=== PATIENT | female | born 1945 | race Caucasian/White ===

== ENCOUNTER 2017-02-02 16:31 | Inpatient (IN) | payer MEDICARE, MEDICAID ==
[~2017-02-02] VITALS: Ht 170.2 cm; Wt 134.7 kg
[2017-02-02 14:55] VITALS: BP 155/77
[~2017-02-02 16:31] MED LIST: BUPR300T53 PO; DOCU250C91 PO; LAMO200T PO; LEVO75TA4 PO; LISI5TAB PO; METF850T2 PO; NYST1POW TP; PNEUMOCOCCAL VACCINE POLYVALENT 0.5 ML VIAL [PPSV23] IM ONE; QUET50TA PO; RISP1 PO; SENN-161 PO; THERAGRAN M1 TA1 PO; XALA2.5OS OU
[2017-02-02] MEDS ORDERED: FURO-152 PO (16:43)
[2017-02-02] MEDS ORDERED: SITA50 PO (16:43)
[2017-02-02 17:13] LABS: BASOPHILS % (AUTO) 0.3 % (0.0-2.0); EOSINOPHILS % (AUTO) 0 % (1.0-6.0); HEMATOCRIT 32.7 % (36-46); HEMOGLOBIN 10.9 g/dL (12.0-16.0); LYMPHOCYTES # (AUTO) 0.6 K/uL (1.0-4.8); LYMPHOCYTES % (AUTO) 15.6 % (22.0-44.0); MEAN CORPUSCULAR HEMOGLOBIN 28.7 pg (26.0-34.0); MEAN CORPUSCULAR HGB CONC 33.5 G/dL (31.0-37.0); MEAN CORPUSCULAR VOLUME 86 fL (80-100); MONOCYTES # (AUTO) 0.3 K/uL (0.1-1.0); NEUTROPHILS % (AUTO) 76.1 % (40.0-70.0); PLATELET COUNT (AUTO) 117 K/uL (150-450); RED BLOOD CELL COUNT(AUTO) 3.81 MIL/uL (4.00-5.20); RED CELL DISTRIBUTION WIDTH 14.5 % (11.5-14.5); WHITE BLOOD COUNT (AUTO) 3.9 K/uL (4.5-11.0)
[2017-02-02 17:44] LABS: ANION GAP 5 mmol/L (8-16); CALCIUM, TOTAL 10.1 mg/dL (8.8-10.5); CARBON DIOXIDE 34 mmol/L (22-29); CHLORIDE 99 mmol/L (98-107); CREATININE 1.77 mg/dL (0.60-1.30); GLOMERULAR FILTR. RATE CALC 28 mL/min (>60); POTASSIUM 3.7 mmol/L (3.5-5.1); SODIUM SERUM 138 mmol/L (136-145); UREA NITROGEN, BLOOD 34 mg/dL (7-18)
[2017-02-02 17:50] LABS: ALANINE AMINOTRANSFERASE 23 U/L (12-78); ALBUMIN 3.1 g/dL (3.4-5.0); ASPARTATE AMINOTRANSFERASE 14 U/L (15-37); BILIRUBIN,TOTAL 0.3 mg/dL (0.1-1.0); TOTAL PROTEIN, SERUM 6.5 g/dL (6.4-8.2)
[2017-02-02 19:17] LABS: GLUCOSE,POINT OF CARE 309 MG/DL (70-110)
[2017-02-02] MEDS ORDERED: INSULIN REGULAR, HUMAN 100 UNITS/ML IVP ONE (19:30)
[2017-02-02] MEDS ORDERED: SODIUM CHLORIDE 0.9% 250 ML IV ONE (19:30)
[2017-02-02] MEDS ORDERED: INSULIN REGULAR, HUMAN 100 UNITS/ML SQ ONE ×2 (19:45)
[2017-02-02 19:50] LABS: APPEARANCE,URINE CLEAR (CLEAR); GLUCOSE, URINE (UA) 500 mg/dL (NEGATIVE); KETONES,URINE NEGATIVE (NEGATIVE); LEUKOCYTE ESTERASE ,URINE NEGATIVE (NEGATIVE); OCCULT BLOOD,URINE NEGATIVE (NEGATIVE); PROTEIN,URINE NEGATIVE (NEGATIVE)
[2017-02-02 19:51] LABS: ADD UA MICROSCOPIC YES; RBC,URINE 0-2 /HPF (0-2); SQUAMOUS EPITHELIAL CELL,UR Few /LPF (None Seen); WBC,URINE 0-2 /HPF (0-5)
[2017-02-02] MEDS ORDERED: SENNA 187 MG TABLET PO PRN (22:15)
[2017-02-02] MEDS ORDERED: DEXTROSE 50%-WATER 25 GM/50 ML SYRINGE IVP PRN (22:30)
[2017-02-02 22:41] VITALS: BP 119/59
[2017-02-02 22:58] VITALS: BP 119/59
[2017-02-03 05:57] LABS: GLUCOSE,POINT OF CARE 265 MG/DL (70-110)
[2017-02-03 06:00] VITALS: BP 133/73
[2017-02-03] MEDS: MetFORMIN HCL 500 MG TABLET PO SCH (06:32)
[2017-02-03] MEDS ORDERED: LEVOTHYROXINE SODIUM 50 MCG TABLET PO SCH (07:00)
[2017-02-03 07:05] LABS: BASOPHILS % (AUTO) 0.1 % (0.0-2.0); EOSINOPHILS % (AUTO) 0 % (1.0-6.0); HEMATOCRIT 30.3 % (36-46); HEMOGLOBIN 10.4 g/dL (12.0-16.0); LYMPHOCYTES # (AUTO) 0.6 K/uL (1.0-4.8); LYMPHOCYTES % (AUTO) 14.9 % (22.0-44.0); MEAN CORPUSCULAR HGB CONC 34.2 G/dL (31.0-37.0); MEAN CORPUSCULAR VOLUME 85 fL (80-100); MONOCYTES # (AUTO) 0.3 K/uL (0.1-1.0); MONOCYTES % (AUTO) 8.7 % (2.0-9.0); NEUTROPHILS % (AUTO) 76.3 % (40.0-70.0); PLATELET COUNT (AUTO) 121 K/uL (150-450); RED BLOOD CELL COUNT(AUTO) 3.57 MIL/uL (4.00-5.20); RED CELL DISTRIBUTION WIDTH 14.3 % (11.5-14.5)
[2017-02-03] MEDS: INSULIN ASPART 100 UNITS/ML SQ PRN ×4 (07:15→20:45)
[2017-02-03 07:37] LABS: ALBUMIN 2.9 g/dL (3.4-5.0); BILIRUBIN,TOTAL 0.3 mg/dL (0.1-1.0); CALCIUM, TOTAL 9.7 mg/dL (8.8-10.5); CREATININE 1.65 mg/dL (0.60-1.30); POTASSIUM 3.9 mmol/L (3.5-5.1); THYROID STIMULATING HORMONE 5.7 uIU/mL (0.36-3.74); TOTAL PROTEIN, SERUM 6.1 g/dL (6.4-8.2)
[2017-02-03 08:00] VITALS: BP 161/92
[2017-02-03] MEDS: LISINOPRIL 5 MG TABLET PO SCH (09:58)
[2017-02-03] MEDS: DOCUSATE SODIUM 250 MG CAPSULE PO SCH ×2 (09:58→16:38)
[2017-02-03] MEDS: SitaGLIPtin PHOSPHATE 50 MG TABLET PO SCH (09:58)
[2017-02-03] MEDS: FUROSEMIDE 20 MG TABLET PO SCH (09:58)
[2017-02-03] MEDS: MULTIVITAMINS WITH MINERALS, THERAPEUTIC TABLET PO SCH (09:59)
[2017-02-03] MEDS: NYSTATIN 15 GM POWDER BOTTLE TP SCH ×2 (09:59→20:14)
[2017-02-03 11:12] LABS: GLUCOSE COMMENT 1 Received Meds; GLUCOSE,POINT OF CARE 298 MG/DL (70-110)
[2017-02-03 16:32] LABS: GLUCOSE,POINT OF CARE 275 MG/DL (70-110)
[2017-02-03] MEDS: LORazepam 1 MG TABLET PO PRN (16:40)
[2017-02-03] MEDS ORDERED: LEVO50 PO (17:03)
[2017-02-03] MEDS ORDERED: RISP3 PO (17:03)
[2017-02-03] MEDS ORDERED: METF500T4 PO (17:03)
[2017-02-03 17:08] VITALS: BP 152/88
[2017-02-03] MEDS: QUEtiapine FUMARATE 100 MG TABLET PO SCH (17:30)
[2017-02-03] MEDS: DIVALPROEX SODIUM 500 MG DR TABLET PO SCH (17:30)
[2017-02-03] MEDS: QUEtiapine FUMARATE 300 MG TABLET PO SCH (20:14)
[2017-02-03] MEDS: LATANOPROST 0.005% 2.5 ML OPHTHALMIC SOLUTION OU SCH (20:14)
[2017-02-03 21:07] LABS: GLUCOSE,POINT OF CARE 279 MG/DL (70-110)
[2017-02-04 00:23] VITALS: BP 129/64
[2017-02-04 05:39] LABS: GLUCOSE COMMENT 1 Received Meds; GLUCOSE,POINT OF CARE 333 MG/DL (70-110)
[2017-02-04] MEDS: LEVOTHYROXINE SODIUM 75 MCG TABLET PO SCH (07:00)
[2017-02-04] MEDS: INSULIN ASPART 100 UNITS/ML SQ PRN ×3 (07:19→17:46)
[2017-02-04] MEDS: MetFORMIN HCL 500 MG TABLET PO SCH ×2 (07:21→08:03)
[2017-02-04 07:26] LABS: HEMOGLOBIN A1C 8.7 % (4.5-6.2)
[2017-02-04 07:28] LABS: CREATINE KINASE, TOTAL 59 U/L (26-192)
[2017-02-04] MEDS: FUROSEMIDE 20 MG TABLET PO SCH (08:03)
[2017-02-04] MEDS: SitaGLIPtin PHOSPHATE 50 MG TABLET PO SCH (08:04)
[2017-02-04] MEDS: QUEtiapine FUMARATE 100 MG TABLET PO SCH ×3 (08:04→17:50)
[2017-02-04] MEDS: DIVALPROEX SODIUM 500 MG DR TABLET PO SCH ×2 (08:04→17:50)
[2017-02-04] MEDS: LamoTRIgine 100 MG TABLET PO SCH (08:04)
[2017-02-04] MEDS: LISINOPRIL 5 MG TABLET PO SCH (08:04)
[2017-02-04] MEDS: DOCUSATE SODIUM 250 MG CAPSULE PO SCH ×2 (08:04→17:50)
[2017-02-04] MEDS: MULTIVITAMINS WITH MINERALS, THERAPEUTIC TABLET PO SCH (08:04)
[2017-02-04] MEDS: NYSTATIN 15 GM POWDER BOTTLE TP SCH ×2 (08:28→21:12)
[2017-02-04 09:23] VITALS: BP 120/63
[2017-02-04] MEDS: LORazepam 1 MG TABLET PO PRN ×2 (09:33→12:03)
[2017-02-04 11:43] LABS: GLUCOSE COMMENT 1 Received Meds; GLUCOSE,POINT OF CARE 341 MG/DL (70-110)
[2017-02-04 18:09] VITALS: BP 109/61
[2017-02-04 20:33] LABS: GLUCOSE COMMENT 1 Received Meds; GLUCOSE,POINT OF CARE 197 MG/DL (70-110)
[2017-02-04] MEDS: QUEtiapine FUMARATE 300 MG TABLET PO SCH (21:12)
[2017-02-04] MEDS: LATANOPROST 0.005% 2.5 ML OPHTHALMIC SOLUTION OU SCH (21:13)
[2017-02-05 00:05] VITALS: BP 119/70
[2017-02-05] MEDS: ZOLPIDEM TARTRATE 10 MG TABLET PO PRN (00:12)
[2017-02-05] MEDS: LORazepam 1 MG TABLET PO PRN ×2 (02:11→09:03)
[2017-02-05] MEDS: INSULIN ASPART 100 UNITS/ML SQ PRN (06:32)
[2017-02-05] MEDS: LEVOTHYROXINE SODIUM 75 MCG TABLET PO SCH (06:33)
[2017-02-05 08:09] VITALS: BP 123/70
[2017-02-05] MEDS: DOCUSATE SODIUM 250 MG CAPSULE PO SCH ×2 (09:02→17:26)
[2017-02-05] MEDS: QUEtiapine FUMARATE 100 MG TABLET PO SCH ×3 (09:02→17:26)
[2017-02-05] MEDS: MULTIVITAMINS WITH MINERALS, THERAPEUTIC TABLET PO SCH (09:02)
[2017-02-05] MEDS: DIVALPROEX SODIUM 500 MG DR TABLET PO SCH ×2 (09:02→17:26)
[2017-02-05] MEDS: SitaGLIPtin PHOSPHATE 50 MG TABLET PO SCH (09:02)
[2017-02-05] MEDS: LamoTRIgine 100 MG TABLET PO SCH (09:03)
[2017-02-05] MEDS: LISINOPRIL 5 MG TABLET PO SCH (09:03)
[2017-02-05] MEDS: NYSTATIN 15 GM POWDER BOTTLE TP SCH ×2 (09:03→21:00)
[2017-02-05] MEDS: FUROSEMIDE 20 MG TABLET PO SCH (09:03)
[2017-02-05 16:05] VITALS: BP 120/73
[2017-02-05] MEDS: LATANOPROST 0.005% 2.5 ML OPHTHALMIC SOLUTION OU SCH (22:18)
[2017-02-05] MEDS: QUEtiapine FUMARATE 300 MG TABLET PO SCH (22:18)
[2017-02-06 02:16] VITALS: BP 143/67
[2017-02-06] MEDS: LEVOTHYROXINE SODIUM 75 MCG TABLET PO SCH ×2 (07:00→07:29)
[2017-02-06] MEDS: INSULIN ASPART 100 UNITS/ML SQ PRN ×3 (07:06→11:03)
[2017-02-06 07:14] LABS: CALCIUM, TOTAL 10.2 mg/dL (8.8-10.5); CHOL/HDL RATIO 3.7 (3.9-5.7); CREATININE 1.54 mg/dL (0.60-1.30); PHOSPHORUS 3.9 mg/dL (2.5-4.9); POTASSIUM 4.1 mmol/L (3.5-5.1)
[2017-02-06] MEDS: SitaGLIPtin PHOSPHATE 50 MG TABLET PO SCH (08:43)
[2017-02-06] MEDS: MULTIVITAMINS WITH MINERALS, THERAPEUTIC TABLET PO SCH (08:44)
[2017-02-06] MEDS: LISINOPRIL 5 MG TABLET PO SCH (08:44)
[2017-02-06] MEDS: FUROSEMIDE 20 MG TABLET PO SCH (08:44)
[2017-02-06] MEDS: LamoTRIgine 100 MG TABLET PO SCH (08:44)
[2017-02-06] MEDS: DOCUSATE SODIUM 250 MG CAPSULE PO SCH ×2 (08:44→17:26)
[2017-02-06] MEDS: QUEtiapine FUMARATE 100 MG TABLET PO SCH ×3 (08:44→17:26)
[2017-02-06] MEDS: DIVALPROEX SODIUM 500 MG DR TABLET PO SCH ×2 (08:46→17:26)
[2017-02-06 09:40] VITALS: BP 123/73
[2017-02-06 10:00] VITALS: BP 127/71
[2017-02-06] MEDS: NYSTATIN 15 GM POWDER BOTTLE TP SCH ×2 (10:04→21:00)
[2017-02-06] MEDS: GlipiZIDE 5 MG TABLET PO SCH (12:13)
[2017-02-06 20:54] VITALS: BP 100/58
[2017-02-06] MEDS: LATANOPROST 0.005% 2.5 ML OPHTHALMIC SOLUTION OU SCH (21:46)
[2017-02-06] MEDS: QUEtiapine FUMARATE 300 MG TABLET PO SCH (21:46)
[2017-02-07 03:17] VITALS: BP 120/75
[2017-02-07] MEDS: GlipiZIDE 5 MG TABLET PO SCH (07:10)
[2017-02-07] MEDS: LEVOTHYROXINE SODIUM 75 MCG TABLET PO SCH (07:10)
[2017-02-07] MEDS: INSULIN ASPART 100 UNITS/ML SQ PRN ×3 (07:12→17:31)
[2017-02-07 08:21] VITALS: BP 102/56
[2017-02-07] MEDS: LamoTRIgine 100 MG TABLET PO SCH (09:16)
[2017-02-07] MEDS: DIVALPROEX SODIUM 500 MG DR TABLET PO SCH ×2 (09:16→16:42)
[2017-02-07] MEDS: SitaGLIPtin PHOSPHATE 50 MG TABLET PO SCH (09:16)
[2017-02-07] MEDS: FUROSEMIDE 20 MG TABLET PO SCH (09:16)
[2017-02-07] MEDS: DOCUSATE SODIUM 250 MG CAPSULE PO SCH ×2 (09:16→16:42)
[2017-02-07] MEDS: MULTIVITAMINS WITH MINERALS, THERAPEUTIC TABLET PO SCH (09:17)
[2017-02-07] MEDS: NYSTATIN 15 GM POWDER BOTTLE TP SCH ×2 (09:17→21:13)
[2017-02-07] MEDS: LISINOPRIL 5 MG TABLET PO SCH (09:17)
[2017-02-07] MEDS: QUEtiapine FUMARATE 100 MG TABLET PO SCH ×3 (09:17→16:42)
[2017-02-07 09:36] LABS: GLUCOSE COMMENT 1 Received Meds; GLUCOSE,POINT OF CARE 240 MG/DL (70-110)
[2017-02-07 09:51] LABS: GLUCOSE COMMENT 1 Received Meds; GLUCOSE,POINT OF CARE 384 MG/DL (70-110)
[2017-02-07 10:03] LABS: GLUCOSE,POINT OF CARE 305 MG/DL (70-110)
[2017-02-07 10:22] LABS: GLUCOSE,POINT OF CARE 313 MG/DL (70-110)
[2017-02-07 11:22] LABS: GLUCOSE,POINT OF CARE 276 MG/DL (70-110)
[2017-02-07 16:43] VITALS: BP 140/65
[2017-02-07 17:48] LABS: GLUCOSE,POINT OF CARE 216 MG/DL (70-110)
[2017-02-07 20:56] LABS: GLUCOSE COMMENT 1 Received Meds; GLUCOSE COMMENT 2 FASTING; GLUCOSE,POINT OF CARE 259 MG/DL (70-110)
[2017-02-07] MEDS: QUEtiapine FUMARATE 300 MG TABLET PO SCH (21:12)
[2017-02-07] MEDS: LATANOPROST 0.005% 2.5 ML OPHTHALMIC SOLUTION OU SCH (21:12)
[2017-02-07 21:17] LABS: GLUCOSE,POINT OF CARE 236 MG/DL (70-110)
[2017-02-07] MEDS: LORazepam 1 MG TABLET PO PRN (22:53)
[2017-02-07] MEDS: ZOLPIDEM TARTRATE 10 MG TABLET PO PRN (22:53)
[2017-02-08 05:48] LABS: GLUCOSE,POINT OF CARE 221 MG/DL (70-110)
[2017-02-08] MEDS: LEVOTHYROXINE SODIUM 75 MCG TABLET PO SCH (06:38)
[2017-02-08] MEDS: GlipiZIDE 5 MG TABLET PO SCH (06:38)
[2017-02-08] MEDS: INSULIN ASPART 100 UNITS/ML SQ PRN ×4 (07:06→21:02)
[2017-02-08 08:19] VITALS: BP 140/88
[2017-02-08] MEDS: FUROSEMIDE 20 MG TABLET PO SCH (09:36)
[2017-02-08] MEDS: MULTIVITAMINS WITH MINERALS, THERAPEUTIC TABLET PO SCH (09:36)
[2017-02-08] MEDS: DIVALPROEX SODIUM 500 MG DR TABLET PO SCH ×2 (09:36→15:49)
[2017-02-08] MEDS: LamoTRIgine 100 MG TABLET PO SCH (09:37)
[2017-02-08] MEDS: DOCUSATE SODIUM 250 MG CAPSULE PO SCH ×2 (09:37→15:49)
[2017-02-08] MEDS: SitaGLIPtin PHOSPHATE 50 MG TABLET PO SCH (09:37)
[2017-02-08] MEDS: LISINOPRIL 5 MG TABLET PO SCH (09:37)
[2017-02-08] MEDS: QUEtiapine FUMARATE 100 MG TABLET PO SCH ×3 (09:37→15:49)
[2017-02-08] MEDS: NYSTATIN 15 GM POWDER BOTTLE TP SCH ×2 (09:37→21:05)
[2017-02-08] MEDS: ACETAMINOPHEN 325 MG TABLET PO PRN (10:10)
[2017-02-08 11:07] LABS: GLUCOSE COMMENT 1 Received Meds; GLUCOSE,POINT OF CARE 368 MG/DL (70-110)
[2017-02-08] MEDS: LORazepam 1 MG TABLET PO PRN (15:03)
[2017-02-08 16:07] LABS: GLUCOSE COMMENT 1 Received Meds; GLUCOSE,POINT OF CARE 192 MG/DL (70-110)
[2017-02-08 16:08] VITALS: BP 129/69
[2017-02-08] MEDS: QUEtiapine FUMARATE 300 MG TABLET PO SCH (20:52)
[2017-02-08] MEDS: LATANOPROST 0.005% 2.5 ML OPHTHALMIC SOLUTION OU SCH (20:52)
[2017-02-08 21:02] LABS: GLUCOSE COMMENT 1 Received Meds; GLUCOSE,POINT OF CARE 211 MG/DL (70-110)
[2017-02-09 05:48] LABS: GLUCOSE COMMENT 1 Received Meds; GLUCOSE,POINT OF CARE 250 MG/DL (70-110)
[2017-02-09] MEDS: INSULIN ASPART 100 UNITS/ML SQ PRN ×2 (07:06→11:56)
[2017-02-09] MEDS: LEVOTHYROXINE SODIUM 75 MCG TABLET PO SCH (07:09)
[2017-02-09] MEDS: GlipiZIDE 5 MG TABLET PO SCH (07:09)
[2017-02-09 08:15] VITALS: BP 135/87
[2017-02-09] MEDS: DIVALPROEX SODIUM 500 MG DR TABLET PO SCH ×2 (08:20→18:11)
[2017-02-09] MEDS: SitaGLIPtin PHOSPHATE 50 MG TABLET PO SCH (08:20)
[2017-02-09] MEDS: MULTIVITAMINS WITH MINERALS, THERAPEUTIC TABLET PO SCH (08:20)
[2017-02-09] MEDS: DOCUSATE SODIUM 250 MG CAPSULE PO SCH ×2 (08:20→18:11)
[2017-02-09] MEDS: LISINOPRIL 5 MG TABLET PO SCH (08:21)
[2017-02-09] MEDS: NYSTATIN 15 GM POWDER BOTTLE TP SCH ×2 (08:21→21:19)
[2017-02-09] MEDS: QUEtiapine FUMARATE 100 MG TABLET PO SCH ×3 (08:21→18:11)
[2017-02-09] MEDS: FUROSEMIDE 20 MG TABLET PO SCH (08:22)
[2017-02-09] MEDS: LamoTRIgine 100 MG TABLET PO SCH (08:22)
[2017-02-09 11:52] LABS: GLUCOSE,POINT OF CARE 210 MG/DL (70-110)
[2017-02-09] MEDS: ACETAMINOPHEN 325 MG TABLET PO PRN (12:46)
[2017-02-09 16:41] LABS: GLUCOSE,POINT OF CARE 133 MG/DL (70-110)
[2017-02-09 18:23] VITALS: BP 123/72
[2017-02-09 19:17] LABS: GLUCOSE COMMENT 1 Post Meal; GLUCOSE,POINT OF CARE 186 MG/DL (70-110)
[2017-02-09 20:15] VITALS: BP 95/50
[2017-02-09] MEDS: QUEtiapine FUMARATE 300 MG TABLET PO SCH (21:00)
[2017-02-09] MEDS: LATANOPROST 0.005% 2.5 ML OPHTHALMIC SOLUTION OU SCH (21:19)
[2017-02-10 05:58] LABS: GLUCOSE,POINT OF CARE 205 MG/DL (70-110)
[2017-02-10] MEDS: GlipiZIDE 5 MG TABLET PO SCH (06:49)
[2017-02-10] MEDS: LEVOTHYROXINE SODIUM 75 MCG TABLET PO SCH (06:49)
[2017-02-10] MEDS: INSULIN ASPART 100 UNITS/ML SQ PRN ×2 (06:58→21:12)
[2017-02-10 08:02] VITALS: BP 132/79
[2017-02-10] MEDS: DOCUSATE SODIUM 250 MG CAPSULE PO SCH ×2 (09:00→17:00)
[2017-02-10] MEDS: MULTIVITAMINS WITH MINERALS, THERAPEUTIC TABLET PO SCH (09:00)
[2017-02-10] MEDS: QUEtiapine FUMARATE 100 MG TABLET PO SCH ×3 (09:00→17:00)
[2017-02-10] MEDS: SitaGLIPtin PHOSPHATE 50 MG TABLET PO SCH (09:01)
[2017-02-10] MEDS: DIVALPROEX SODIUM 500 MG DR TABLET PO SCH ×2 (09:01→17:00)
[2017-02-10] MEDS: LamoTRIgine 100 MG TABLET PO SCH (09:01)
[2017-02-10] MEDS: FUROSEMIDE 20 MG TABLET PO SCH (09:01)
[2017-02-10] MEDS: LORazepam 1 MG TABLET PO PRN ×2 (09:01→22:21)
[2017-02-10] MEDS: NYSTATIN 15 GM POWDER BOTTLE TP SCH ×2 (09:01→20:26)
[2017-02-10] MEDS: LISINOPRIL 5 MG TABLET PO SCH (09:01)
[2017-02-10 10:58] VITALS: BP 148/89
[2017-02-10] MEDS: ACETAMINOPHEN 325 MG TABLET PO PRN ×2 (10:58→20:36)
[2017-02-10 11:17] LABS: GLUCOSE COMMENT 1 Received Meds; GLUCOSE,POINT OF CARE 151 MG/DL (70-110)
[2017-02-10 16:12] VITALS: BP 131/78
[2017-02-10 16:22] LABS: GLUCOSE,POINT OF CARE 129 MG/DL (70-110)
[2017-02-10 16:34] VITALS: BP 131/78
[2017-02-10] MEDS: QUEtiapine FUMARATE 300 MG TABLET PO SCH (20:26)
[2017-02-10] MEDS: LATANOPROST 0.005% 2.5 ML OPHTHALMIC SOLUTION OU SCH (20:26)
[2017-02-10 20:37] VITALS: BP 129/74
[2017-02-10 20:37] LABS: GLUCOSE COMMENT 1 Received Meds; GLUCOSE,POINT OF CARE 216 MG/DL (70-110)
[2017-02-11 05:35] VITALS: BP 111/74
[2017-02-11 05:47] LABS: GLUCOSE,POINT OF CARE 204 MG/DL (70-110)
[2017-02-11] MEDS: INSULIN ASPART 100 UNITS/ML SQ PRN ×4 (06:48→21:59)
[2017-02-11] MEDS: GlipiZIDE 5 MG TABLET PO SCH (06:51)
[2017-02-11] MEDS: LEVOTHYROXINE SODIUM 75 MCG TABLET PO SCH (06:51)
[2017-02-11 07:02] LABS: CALCIUM, TOTAL 10.6 mg/dL (8.8-10.5); CREATININE 2.21 mg/dL (0.60-1.30); MAGNESIUM 2.7 mg/dL (1.80-2.40); PHOSPHORUS 4.2 mg/dL (2.5-4.9); POTASSIUM 4.5 mmol/L (3.5-5.1)
[2017-02-11 07:42] LABS: BASOPHILS % (AUTO) 0.2 % (0.0-2.0); EOSINOPHILS % (AUTO) 0.1 % (1.0-6.0); HEMOGLOBIN 11.5 g/dL (12.0-16.0); LYMPHOCYTES # (AUTO) 0.7 K/uL (1.0-4.8); LYMPHOCYTES % (AUTO) 24.4 % (22.0-44.0); MEAN CORPUSCULAR HEMOGLOBIN 29.1 pg (26.0-34.0); MEAN CORPUSCULAR HGB CONC 33.9 G/dL (31.0-37.0); MEAN CORPUSCULAR VOLUME 86 fL (80-100); MONOCYTES # (AUTO) 0.4 K/uL (0.1-1.0); MONOCYTES % (AUTO) 12.9 % (2.0-9.0); NEUTROPHILS # (AUTO) 1.8 K/uL (1.8-7.7); NEUTROPHILS % (AUTO) 62.4 % (40.0-70.0); PLATELET COUNT (AUTO) 127 K/uL (150-450); RED BLOOD CELL COUNT(AUTO) 3.96 MIL/uL (4.00-5.20); RED CELL DISTRIBUTION WIDTH 14.5 % (11.5-14.5); WHITE BLOOD COUNT (AUTO) 2.9 K/uL (4.5-11.0)
[2017-02-11] MEDS: MULTIVITAMINS WITH MINERALS, THERAPEUTIC TABLET PO SCH (09:02)
[2017-02-11] MEDS: PIOGLITAZONE HCL 15 MG TABLET PO SCH (09:02)
[2017-02-11] MEDS: LamoTRIgine 100 MG TABLET PO SCH (09:02)
[2017-02-11] MEDS: DIVALPROEX SODIUM 500 MG DR TABLET PO SCH ×2 (09:02→17:27)
[2017-02-11] MEDS: QUEtiapine FUMARATE 100 MG TABLET PO SCH ×3 (09:02→17:27)
[2017-02-11] MEDS: DOCUSATE SODIUM 250 MG CAPSULE PO SCH ×2 (09:02→17:00)
[2017-02-11] MEDS: FUROSEMIDE 20 MG TABLET PO SCH (09:02)
[2017-02-11] MEDS: LISINOPRIL 5 MG TABLET PO SCH (09:03)
[2017-02-11] MEDS: NYSTATIN 15 GM POWDER BOTTLE TP SCH ×2 (09:03→20:18)
[2017-02-11] MEDS: SitaGLIPtin PHOSPHATE 50 MG TABLET PO SCH (09:03)
[2017-02-11 09:54] VITALS: BP 139/87
[2017-02-11 11:32] LABS: GLUCOSE,POINT OF CARE 176 MG/DL (70-110)
[2017-02-11 16:26] VITALS: BP 132/81
[2017-02-11 17:27] LABS: GLUCOSE COMMENT 1 Received Meds; GLUCOSE,POINT OF CARE 171 MG/DL (70-110)
[2017-02-11] MEDS: LORazepam 1 MG TABLET PO PRN ×2 (17:27→21:47)
[2017-02-11] MEDS: LATANOPROST 0.005% 2.5 ML OPHTHALMIC SOLUTION OU SCH (20:19)
[2017-02-11] MEDS: QUEtiapine FUMARATE 300 MG TABLET PO SCH (20:19)
[2017-02-11 20:27] LABS: GLUCOSE COMMENT 1 Received Meds; GLUCOSE,POINT OF CARE 170 MG/DL (70-110)
[2017-02-12] MEDS: ZOLPIDEM TARTRATE 10 MG TABLET PO PRN (01:20)
[2017-02-12 05:37] LABS: GLUCOSE COMMENT 1 Received Meds; GLUCOSE,POINT OF CARE 208 MG/DL (70-110)
[2017-02-12 05:42] VITALS: BP 122/76
[2017-02-12] MEDS: INSULIN ASPART 100 UNITS/ML SQ PRN ×2 (06:49→11:19)
[2017-02-12] MEDS: GlipiZIDE 5 MG TABLET PO SCH (06:50)
[2017-02-12] MEDS: LEVOTHYROXINE SODIUM 75 MCG TABLET PO SCH (06:50)
[2017-02-12 06:52] LABS: CALCIUM, TOTAL 10.4 mg/dL (8.8-10.5); CREATININE 2.4 mg/dL (0.60-1.30); POTASSIUM 4.7 mmol/L (3.5-5.1)
[2017-02-12] MEDS: NYSTATIN 15 GM POWDER BOTTLE TP SCH ×2 (08:39→20:45)
[2017-02-12] MEDS: PIOGLITAZONE HCL 15 MG TABLET PO SCH (08:40)
[2017-02-12] MEDS: DIVALPROEX SODIUM 500 MG DR TABLET PO SCH ×2 (08:40→16:58)
[2017-02-12] MEDS: DOCUSATE SODIUM 250 MG CAPSULE PO SCH ×2 (08:40→16:58)
[2017-02-12] MEDS: QUEtiapine FUMARATE 100 MG TABLET PO SCH ×3 (08:40→16:58)
[2017-02-12] MEDS: AmLODIPine BESYLATE 5 MG TABLET PO SCH (08:40)
[2017-02-12] MEDS: SitaGLIPtin PHOSPHATE 50 MG TABLET PO SCH (08:40)
[2017-02-12] MEDS: LamoTRIgine 100 MG TABLET PO SCH (08:40)
[2017-02-12] MEDS: MULTIVITAMINS WITH MINERALS, THERAPEUTIC TABLET PO SCH (08:40)
[2017-02-12 10:54] LABS: APPEARANCE,URINE CLOUDY (CLEAR); GLUCOSE, URINE (UA) NEGATIVE (NEGATIVE); KETONES,URINE NEGATIVE (NEGATIVE); LEUKOCYTE ESTERASE ,URINE MODERATE (NEGATIVE); OCCULT BLOOD,URINE NEGATIVE (NEGATIVE); PROTEIN,URINE TRACE (NEGATIVE)
[2017-02-12 11:00] LABS: ADD UA MICROSCOPIC YES
[2017-02-12 11:01] LABS: RBC,URINE None Seen /HPF (0-2); RENAL EPITHELIAL CELLS,URINE Few /LPF (None Seen); SQUAMOUS EPITHELIAL CELL,UR Rare /LPF (None Seen); WBC,URINE 26-50 /HPF (0-5)
[2017-02-12 11:23] LABS: GLUCOSE COMMENT 1 Received Meds; GLUCOSE,POINT OF CARE 194 MG/DL (70-110)
[2017-02-12 14:46] VITALS: BP 113/58
[2017-02-12 16:31] VITALS: BP 123/79
[2017-02-12] MEDS: QUEtiapine FUMARATE 300 MG TABLET PO SCH (20:45)
[2017-02-12] MEDS: LATANOPROST 0.005% 2.5 ML OPHTHALMIC SOLUTION OU SCH (20:45)
[2017-02-13] MEDS: GlipiZIDE 5 MG TABLET PO SCH (06:52)
[2017-02-13] MEDS: LEVOTHYROXINE SODIUM 75 MCG TABLET PO SCH (06:53)
[2017-02-13] MEDS: INSULIN ASPART 100 UNITS/ML SQ PRN ×4 (07:02→21:59)
[2017-02-13 07:32] LABS: GLUCOSE,POINT OF CARE 174 MG/DL (70-110)
[2017-02-13 07:55] LABS: CALCIUM, TOTAL 10.6 mg/dL (8.8-10.5); CREATININE 2.37 mg/dL (0.60-1.30); POTASSIUM 4.6 mmol/L (3.5-5.1)
[2017-02-13] MEDS: LamoTRIgine 100 MG TABLET PO SCH (09:09)
[2017-02-13] MEDS: SitaGLIPtin PHOSPHATE 50 MG TABLET PO SCH (09:09)
[2017-02-13] MEDS: DIVALPROEX SODIUM 500 MG DR TABLET PO SCH ×2 (09:09→17:31)
[2017-02-13] MEDS: NYSTATIN 15 GM POWDER BOTTLE TP SCH ×2 (09:09→21:37)
[2017-02-13] MEDS: AmLODIPine BESYLATE 5 MG TABLET PO SCH (09:09)
[2017-02-13] MEDS: PIOGLITAZONE HCL 15 MG TABLET PO SCH (09:09)
[2017-02-13] MEDS: DOCUSATE SODIUM 250 MG CAPSULE PO SCH ×2 (09:09→17:00)
[2017-02-13] MEDS: MULTIVITAMINS WITH MINERALS, THERAPEUTIC TABLET PO SCH (09:09)
[2017-02-13] MEDS: QUEtiapine FUMARATE 100 MG TABLET PO SCH ×3 (09:09→17:30)
[2017-02-13 10:56] VITALS: BP 144/58
[2017-02-13 11:21] LABS: GLUCOSE COMMENT 1 Received Meds; GLUCOSE,POINT OF CARE 253 MG/DL (70-110)
[2017-02-13 17:27] LABS: GLUCOSE,POINT OF CARE 152 MG/DL (70-110)
[2017-02-13] MEDS: QUEtiapine FUMARATE 300 MG TABLET PO SCH (21:37)
[2017-02-13] MEDS: LATANOPROST 0.005% 2.5 ML OPHTHALMIC SOLUTION OU SCH (21:39)
[2017-02-13 21:52] LABS: GLUCOSE,POINT OF CARE 144 MG/DL (70-110)
[2017-02-13 22:49] VITALS: BP 112/64
[2017-02-14 06:04] VITALS: BP 115/62
[2017-02-14 06:07] LABS: GLUCOSE COMMENT 1 Received Meds; GLUCOSE,POINT OF CARE 152 MG/DL (70-110)
[2017-02-14] MEDS: INSULIN ASPART 100 UNITS/ML SQ PRN ×2 (06:33→11:56)
[2017-02-14] MEDS: GlipiZIDE 5 MG TABLET PO SCH (06:49)
[2017-02-14] MEDS: LEVOTHYROXINE SODIUM 75 MCG TABLET PO SCH (06:49)
[2017-02-14 06:58] LABS: CALCIUM, TOTAL 10.5 mg/dL (8.8-10.5); CREATININE 2.32 mg/dL (0.60-1.30); MAGNESIUM 2.7 mg/dL (1.80-2.40); PHOSPHORUS 4.5 mg/dL (2.5-4.9); POTASSIUM 4.6 mmol/L (3.5-5.1)
[2017-02-14] MEDS: DIVALPROEX SODIUM 500 MG DR TABLET PO SCH (08:27)
[2017-02-14] MEDS: AmLODIPine BESYLATE 5 MG TABLET PO SCH (08:27)
[2017-02-14] MEDS: MULTIVITAMINS WITH MINERALS, THERAPEUTIC TABLET PO SCH (08:27)
[2017-02-14] MEDS: LamoTRIgine 100 MG TABLET PO SCH (08:28)
[2017-02-14] MEDS: DOCUSATE SODIUM 250 MG CAPSULE PO SCH (08:28)
[2017-02-14] MEDS: QUEtiapine FUMARATE 100 MG TABLET PO SCH ×2 (08:28→12:15)
[2017-02-14] MEDS: NYSTATIN 15 GM POWDER BOTTLE TP SCH (08:29)
[2017-02-14] MEDS: PIOGLITAZONE HCL 15 MG TABLET PO SCH (08:29)
[2017-02-14] MEDS: SitaGLIPtin PHOSPHATE 50 MG TABLET PO SCH (08:32)
[2017-02-14 10:05] VITALS: BP 113/76
[2017-02-14] MEDS ORDERED: QUET100T PO (12:07)
[2017-02-14] MEDS ORDERED: DIVA500T35 PO (12:07)
[2017-02-14] MEDS ORDERED: QUET300T2 PO (12:08)
[2017-02-14] MEDS ORDERED: AMLO-511 PO (12:12)
[2017-02-14] MEDS ORDERED: GLIP5 PO (12:12)
[2017-02-14] MEDS ORDERED: LEVO75 PO (12:12)
[2017-02-14] MEDS ORDERED: PIOG15TA13 PO (12:13)
[2017-02-14 13:22] LABS: GLUCOSE,POINT OF CARE 140 MG/DL (70-110)
== END 2017-02-14 14:05 | disposition home or self-care (01) | DRG 885 ==
LOC: EMS 16:34 → 3EX 20:42
PROVIDERS: ADMIT Psychiatry & Neurology Psychiatry; ATTEND Psychiatry & Neurology Psychiatry
DX: F20.0 Paranoid schizophrenia (principal); N17.9 Acute kidney failure, unspecified; D61.818 Other pancytopenia; E11.22 Type 2 diabetes mellitus with diabetic chronic kidney disease; E11.65 Type 2 diabetes mellitus with hyperglycemia; N18.3 Chronic kidney disease, stage 3 (moderate); E03.9 Hypothyroidism, unspecified; E78.5 Hyperlipidemia, unspecified; E83.52 Hypercalcemia; H40.9 Unspecified glaucoma; I12.9 Hypertensive chronic kidney disease with stage 1 through stage 4 chronic kidney disease, or unspecified chronic kidney disease; I25.10 Atherosclerotic heart disease of native coronary artery without angina pectoris; K21.9 Gastro-esophageal reflux disease without esophagitis; K59.00 Constipation, unspecified; Z28.21 Immunization not carried out because of patient refusal; Z79.84 Long term (current) use of oral hypoglycemic drugs; Z82.49 Family history of ischemic heart disease and other diseases of the circulatory system; Z87.891 Personal history of nicotine dependence; Z91.19 Patient's noncompliance with other medical treatment and regimen; Z88.8 Allergy status to other drugs, medicaments and biological substances
CPT/HCPCS: 76770; 82306; 82570; 82607; 82746; 82962; 83036; 83519; 83735; 83970; 84100; 84156; 84300; 84439; 84443; 84540; 87081; 87086; 87147; 89050; 90471; 96372; 99285; G0480; J1815; J7050